=== PATIENT | male | born 1985 | race African-American/Black ===

== ENCOUNTER 2017-08-09 17:59 | Emergency (ER) | payer SELFPAY | END 2017-08-09 20:31 | disposition home or self-care (01) | LOC: EDBD 17:59 → D.ER 17:59 | DX: R51 Headache (principal); Y04.2XXA Assault by strike against or bumped into by another person, initial encounter; Y93.89 Activity, other specified; Y92.029 Unspecified place in mobile home as the place of occurrence of the external cause; F17.200 Nicotine dependence, unspecified, uncomplicated ==

== ENCOUNTER 2017-08-18 10:37 | Emergency (ER) | payer SELFPAY | END 2017-08-18 12:09 | disposition home or self-care (01) | LOC: D.ER 10:37 | DX: J06.9 Acute upper respiratory infection, unspecified (principal); J01.90 Acute sinusitis, unspecified; J20.9 Acute bronchitis, unspecified; F17.200 Nicotine dependence, unspecified, uncomplicated ==

== ENCOUNTER 2017-08-22 18:35 | Emergency (ER) | payer SELFPAY | END 2017-08-22 21:05 | disposition home or self-care (01) | LOC: D.ER 18:35 | DX: S90.121A Contusion of right lesser toe(s) without damage to nail, initial encounter (principal); X58.XXXA Exposure to other specified factors, initial encounter; Y93.89 Activity, other specified; Y92.029 Unspecified place in mobile home as the place of occurrence of the external cause; F17.200 Nicotine dependence, unspecified, uncomplicated ==

== ENCOUNTER 2017-08-29 12:17 | Emergency (ER) | payer SELFPAY | END 2017-08-29 14:35 | disposition home or self-care (01) | LOC: D.ER 12:17 | DX: J20.9 Acute bronchitis, unspecified (principal); B34.9 Viral infection, unspecified; F17.200 Nicotine dependence, unspecified, uncomplicated ==

== ENCOUNTER 2017-10-11 13:09 | Emergency (ER) | payer SELFPAY | END 2017-10-11 15:50 | disposition home or self-care (01) | LOC: D.ER 13:09 | DX: J20.9 Acute bronchitis, unspecified (principal) ==

== ENCOUNTER 2019-07-30 16:15 | Emergency (ER) | payer SELFPAY ==
[~2019-07-30] VITALS: Ht 182.9 cm; Wt 79.5 kg
[2019-07-30 16:46] VITALS: Ht 182.9 cm; Wt 79.5 kg
[2019-07-30] MEDS ORDERED: ZPAK PO (17:29)
[2019-07-30] MEDS ORDERED: FLUTICASONE PRO16 GM NASAL (17:29)
[2019-07-30] MEDS ORDERED: TESSALON PERLE100 MG PO (17:29)
[2019-07-30 17:46] VITALS: BP 120/65
== END 2019-07-30 17:47 | disposition home or self-care (01) ==
LOC: D.ER 16:15
DX: J20.9 Acute bronchitis, unspecified (principal); J01.90 Acute sinusitis, unspecified

== ENCOUNTER 2020-03-05 15:27 | Emergency (ER) | payer MEDICAID ==
[~2020-03-05] VITALS: Ht 182.9 cm; Wt 84.1 kg
[~2020-03-05 15:27] MED LIST: FLUTICASONE PRO16 GM NASAL; TESSALON PERLE100 MG PO; ZPAK PO
[2020-03-05 15:45] VITALS: BP 131/90; Ht 182.9 cm; Wt 84.1 kg
[2020-03-05] MEDS ORDERED: IBUPROFEN800 MG PO (17:33)
[2020-03-05] MEDS ORDERED: BACLOFEN20 M1 PO (17:33)
[2020-03-05] MEDS ORDERED: TYLENOL W/CODEI1 TAB PO (17:33)
== END 2020-03-05 18:00 | disposition home or self-care (01) ==
LOC: D.ER 15:27
DX: S79.911A Unspecified injury of right hip, initial encounter (principal); W19.XXXA Unspecified fall, initial encounter; Y93.9 Activity, unspecified; Y92.9 Unspecified place or not applicable; Y99.0 Civilian activity done for income or pay

== ENCOUNTER 2021-02-16 12:41 | Emergency (ER) | payer MEDICAID ==
[~2021-02-16] VITALS: Ht 188 cm; Wt 86.4 kg
[~2021-02-16 12:41] MED LIST changes: +BACLOFEN20 M1 PO; +BACTRIM 400-801 TAB PO; +IBUPROFEN800 MG PO; +NAPROSYN500 MG PO; +TYLENOL W/CODEI1 TAB PO
[2021-02-16 12:54] VITALS: Ht 188 cm; Wt 86.4 kg
[2021-02-16 13:39] LABS: CALC OSMOLALITY 276 mosm/kg (275-300); CARBON DIOXIDE 24.5 mmol/L (21.0-32.0); CHLORIDE - SERUM 102 mmol/L (98-107); CREATININE - SERUM 1.1 mg/dL (0.6-1.3); GLUCOSE 87 mg/dL (74-106); POTASSIUM - SERUM 3.7 mmol/L (3.5-5.1); SODIUM 140 mmol/L (136-145); UREA NITROGEN 9 mg/dL (7-18); eGFR NON AFRICAN AMERICAN 80 mL/min (90-120)
[2021-02-16 13:45] LABS: ALBUMIN 4.1 g/dL (3.4-5.0); ALKALINE PHOSPHATASE 91 U/L (30-120); ALT (SGPT) 33 U/L (10-68); BILIRUBIN - TOTAL 0.41 mg/dL (0.2-1.3); PROTEIN - SERUM 7.8 g/dL (6.4-8.2)
[2021-02-16 14:00] LABS: INFLUENZA TYPE A NEGATIVE (NEGATIVE); INFLUENZA TYPE B NEGATIVE (NEGATIVE); SARS-CoV-2 ANTIGEN NEGATIVE- SARS-COV-2 (NEGATIVE)
[2021-02-16 14:08] LABS: BASOPHILS 0.1 % (0-2); EOSINOPHILS 5.7 % (0-7); HEMATOCRIT 46.3 % (42.0-54.0); HEMOGLOBIN 15.5 g/dL (13.5-17.5); IMMATURE GRANULOCYTES 0.3 % (0-5); LYMPHOCYTE ABS# 1.92 10x3/uL (1.32-3.57); LYMPHOCYTES 25.5 % (15-50); MCH 27.5 pg (26.0-34.0); MCHC 33.5 g/dL (31.0-37.0); MCV 82.2 fL (80.0-100.0); MONOCYTES 12.9 % (2-11); NEUTROPHIL ABS# 4.17 10x3/uL (1.78-5.38); NEUTROPHILS 55.5 % (40-80); PLATELET COUNT 343 10x3/uL (130-400); RBC 5.63 10x6/uL (4.20-6.10); RDW 13.6 % (11.5-14.5); WBC 7.5 10x3/uL (4.8-10.8)
[2021-02-16] MEDS ORDERED: AUGMENTIN 875-11 TAB PO (14:30)
[2021-02-16] MEDS ORDERED: CLARITIN 10 MG10 MG PO (14:30)
[2021-02-16] MEDS ORDERED: BROMFED-DM COU473 ML PO (14:30)
[2021-02-16] MEDS ORDERED: MEDROL DOSE PACK4 MG PO (14:32)
[2021-02-16 14:38] VITALS: BP 112/63
== END 2021-02-16 14:39 | disposition home or self-care (01) ==
LOC: D.ER 12:41
PROVIDERS: Family Medicine
DX: J32.9 Chronic sinusitis, unspecified (principal); J40 Bronchitis, not specified as acute or chronic; Z72.0 Tobacco use